=== PATIENT | female | born 1955 | race Caucasian/White ===

== ENCOUNTER → 2016-11-24 | Emergency (ER) | payer OTHER ==
[~2016-11-24] VITALS: Ht 170.2 cm; Wt 73.0 kg
[~2016-11-24] MED LIST: PERCOCET1 TAB PO
--- NOTE | 2016-11-24 02:40 | Emergency Room Report ---
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 N Clinical Suspician of Infection? N Mental Status: 1 - Regular (Normal Baseline) Sepsis Risk:Low Sepsis Risk Have you (or family members/close friends) recently traveled outside the [place]? N If Yes, where/when: Have you had exposure to infectious disease within the past month? N TB? Other? Specify: Source patient, RN notes reviewed, family, old records Exam Limitations no limitations Comment ot with pain from lower back to lt loert leg with surg pending Cardiac Chest Pain Chest pain indicative of cardiac No Timing/Duration this evening Severity moderate ALLERGIES Coded Allergies: Penicillins (Intermediate, 11/24/16) History Medical History General CAD? No Angina: No NC: No Hypertension? No Hyperlipidemia? Yes CHF? No DVT? No PE? No COPD? No Asthma? No Anemia? No GERD? No Gastric ulcers? No GI Bleed? No Hernia? No Thyroid Problems? No Hypothyroidism? No CVA? No Seizures? No Diabetes? Yes Insulin Dependent: Yes Insulin Pump: No Home FSBS? Yes Renal Insuffiency? No End Stage Renal Disease? No UTI? No Stones? No BPH? No GB Disease: No Nephritic Syndrome? No Asplenia? No Hepatitis? No Sickle Cell Disease? No Arthritis? No Migraines? No Cataracts? No Glaucoma? No MRSA? No HIV? No TB? No Anxiety? No Depression? No Cancer? No Immunization Hx DT/Tetanus 5-10 Years Ago Surgical Hx Previous Surgery?Y Hysterectomy-Total HEART CATH Social History Smoking Hx Smoker: Never Smoker Tobacco: No Alcohol Alcohol: No Drugs none Review of Systems All Other Systems Reviewed and Negative Constitutional denies fever Eyes denies drainage ENT denies: ear pain, epistaxis, throat pain. Respiratory denies cough, denies shortness of breath, denies wheezing Cardiovascular denies chest pain, denies syncope Gastrointestinal denies abdominal pain, denies diarrhea, denies vomiting Genitourinary denies: dysuria, frequency, hesitancy, hematuria. Musculoskeletal denies back pain, denies joint pain, denies joint swelling, denies neck pain Skin denies rash Psychiatric/Neurological denies headache, denies seizure Physical Exam Vital Signs Vital Signs Date Time Temp Pulse Resp B/P Pulse O2 O2 Flow FiO2 Ox Delivery Rate 11/24 0213 97.8 74 18 135/72 96 - WBC >12,000 or <4,000 or 10% bands? 2 or more SIRS Criteria Met? B/P:135/72 MAP:93 Creatinine >2.0? UA output<0.5ml/kg/hr for 2 hrs? Platelet count >100,000? Lactate >2.0mmol/1? INR >1.2 or PTT > than 60 sec? Evidence of Organ Dysfunction? Provider documented clinical suspician of infection? N Sepsis Criteria Count: 0 Sepsis Risk: Low Sepsis Risk General Appearance no apparent distress Eye Exam - bilateral eye PERRL, bilateral eye EOMI Ear, Nose, Throat normal ENT inspection Neck supple Respiratory Status No: respiratory distress. 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 No Departure Departure Time of Disposition 0235 Disposition DC Home or Self Care(routine) Clinical Impression Primary Impression: Lumbar disc disease with radiculopathy Condition STABLE Patient Instructions DI for Lumbar Radiculopathy Additional Instructions use meds and see pcp for follow up Discharge Counseling Counseled pt/family regarding diagnosis, medications/RX, follow up needs Prescriptions Current Visit Scripts OXYCODONE HCL/ACETAMINOPHEN (Percocet 5-325 MG Tablet) 1 TAB PO QID #15 TAB ED Critical Care Critical Care No at 0233
[2016-11-24 02:53] VITALS: BP 130/74
--- OUTSIDE RECORDS SUMMARY | 2016-12-01 18:05 | External Medical Summary Rpt ---
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 Name Role Phone JONG, (REF) PCP [phone] Encounter [facility] Date(s): 06/30/16 - 07/20/16 [facility] [address] [place] [address]- [phone] Discharge Disposition: OP Self Care or Home Attending Physician: EDSON SALMON MD-SNU Admitting Physician: EDSON SALMON MD-SNU Referring Physician: EDSON SALMON MD-SNU Reason for Visit OTHER INTERVERTEBRAL DISC DISPLACEMENT, LUMBAR REGION Vital Signs Most recent 1 2 3 to oldest [Reference Range]: Temperature Temporal artery Temporal artery Temporal artery Source scanning (07/20/16 scanning (07/20/16 scanning (07/20/16 1:40 PM) 1:25 PM) 1:00 PM) Temperature Fahrenheit Fahrenheit Fahrenheit Mode (07/20/16 1:25 PM) (07/20/16 1:00 PM) (07/20/16 12:15 PM) Temperature, 97.6 Deg F 97.8 Deg F 97.6 Deg F Fahrenheit (07/20/16 1:25 PM) (07/20/16 1:00 PM) (07/20/16 12:15 [96.8-99.7 PM) Deg F] Clinical 36.4 Deg C 36.2 Deg C Temperature, (07/20/16 12:15 (07/14/16 1:01 PM) C PM) Pulse Method Pulse Oximetry (07/14/16 1:01 PM) Peripheral 87 bpm Pulse Rate (07/14/16 1:01 PM) [60-100 bpm] Heart Rate 80 bpm 88 bpm 79 bpm Monitored (07/20/16 1:55 PM) (07/20/16 1:40 PM) (07/20/16 1:25 PM) [60-100 bpm] Respiratory 16 Breaths/Min 18 Breaths/Min 14 Breaths/Min Rate [14-20 (07/20/16 1:25 PM) (07/20/16 1:15 PM) (07/20/16 1:00 PM) Breaths/Min] Blood Arm, right upper Pressure (07/14/16 1:01 PM) Location Blood Non-Invasive BP Pressure Device (07/14/16 Source 1:01 PM) Blood Sitting Pressure (07/14/16 1:01 PM) Position Blood 118/63 mmHg 122/56 mmHg 118/63 mmHg Pressure (07/20/16 1:55 PM) (07/20/16 1:40 PM) (07/20/16 1:25 PM) [90-140/60-9 0 mmHg] Mean 16 79 81 Arterial (07/20/16 1:55 PM) (07/20/16 1:15 PM) (07/20/16 1:00 PM) Pressure (MAP)-BMDI Oxygen 99 % 99 % 99 % Saturation (07/20/16 1:55 PM) (07/20/16 1:40 PM) (07/20/16 1:25 PM) [94-100 %] Oxygen Room air Room air Room air Therapy Mode (07/20/16 1:55 PM) (07/20/16 1:40 PM) (07/20/16 1:25 PM) Oxygen Flow 6 Liter/Min Rate (07/20/16 12:15 PM) Height Measured Source (07/14/16 1:01 PM) Height Entry [place] Format (07/14/16 1:01 PM) Height/Lengt 67 Inch h UKRAINIAN (07/14/16 1:01 PM) CLINICALHEIG 170.18 cm HT (07/14/16 1:01 PM) Weight Standing scale Source (07/14/16 1:01 PM) Weight Entry [place] Format (07/14/16 1:01 PM) Weight 169 lb Gibraltarian lb (07/14/16 1:01 PM) CLINICALWEIG 76.82 kg HT (07/14/16 1:01 PM) Body Surface 1.88 m2 Area (BSA) (07/14/16 1:01 PM) Body Mass 26.5 kg/m2 Index *HI* [19.0-24.0 (07/14/16 1:01 PM) kg/m2] Alexander Body 61 kg Weight (07/14/16 1:01 PM) Problem List Condition Effective Status Health Informant Dates Status Angina(Confi Active rmed) Back Active pain(Confirm ed) Cataract(Con Active firmed) Coronary Active artery disease(Conf irmed) Diabetes Active mellitus(Con firmed) Disc Active disorder(Con firmed) Endometriosi Active s(Confirmed) Hyperlipidem Active ia(Confirmed ) Allergies, Adverse Reactions, Alerts Substance Reaction Severity Status penicillin Active Medications aspirin 81 mg, Oral, Every Day, Refills: 0 atenolol 12.5 mg, Oral, Every Day, Refills: 0 atorvastatin 20 mg, Oral, Every Day, Refills: 0 citalopram 20 mg, Oral, Every Day, Refills: 0 clopidogrel (Plavix) 75 mg, Oral, Every Day, Refills: 0 oetwfsihejxbnzp31 mg, Oral, Every Day, As Needed, as needed for muscle spasm, Refills: 0 dapagliflozin (Farxiga) 5 mg, Oral, Every Day, Refills: 0 ergocalciferol (Vitamin D2 50,000 intl units (1.25 mg) oral capsule)1 Cap, Oral, Weekly, Refills: 0 fenofibrate 145 mg, Oral, Every Day, Refills: 0 gabapentin 100 mg, Oral, Three Times A Day, Refills: 0 ibuprofen 400 mg, Oral, Four Times A Day, Refills: 0 insulin aspart-insulin aspart protamine (NovoLOG Mix 70/30)50 Units, SubCutaneous , Twice a Day Before Meals, Refills: 0 ranolazine (Ranexa) 500 mg, Oral, Every Day, Refills: 0 Results GENERAL CHEMISTRY Most recent 1 2 to oldest [Reference Range]: Sodium Level 143 mmol/L [136-146 (07/14/16 1:35 PM) mmol/L] Potassium 4.1 mmol/L Level (07/14/16 1:35 PM) [3.5-5.1 mmol/L] Chloride 108 mmol/L Level (07/14/16 1:35 PM) [102-112 mmol/L] Carbon 27 mmol/L Dioxide (07/14/16 1:35 PM) Level [21-32 mmol/L] Anion Gap 12 [9-20] (07/14/16 1:35 PM) Glucose 110 mg/dL Level *HI* [74-106 (07/14/16 1:35 PM) mg/dL] Blood Urea 18 mg/dL Nitrogen (07/14/16 1:35 PM) [7-22 mg/dL] Creatinine 0.70 mg/dL Level (07/14/16 1:35 PM) [0.55-1.02 mg/dL] eGFR 103 mL/min/1.73m2 [>=60 (07/14/16 1:35 PM) mL/min/1.73m 2] eGFR 85 mL/min/1.73m2 NonAfrican (07/14/16 1:35 PM) [>=60 mL/min/1.73m 2] Bun/Creatini 25.7 ne *HI* [8.0-20.0] (07/14/16 1:35 PM) Calcium 8.4 mg/dL Level *LOW* [8.5-10.1 (07/14/16 1:35 PM) mg/dL] Device No action Require No action Require Comment 1 *NA* *NA* (07/20/16 12:44 PM) (07/20/16 8:46 AM) Glucose POC2 172 mg/dL 180 mg/dL [70-110 *HI* *HI* mg/dL] (07/20/16 12:44 PM) (07/20/16 8:46 AM) HEMATOLOGY Most recent 1 2 to oldest [Reference Range]: WBC 7.8 K/uL [4.0-10.0 (07/14/16 1:35 PM) K/uL] RBC 4.15 Million/uL [3.93-5.22 (07/14/16 1:35 PM) Million/uL] Hgb 12.4 g/dL [11.2-15.7 (07/14/16 1:35 PM) g/dL] Hct 38.3 % [34.1-44.9 (07/14/16 1:35 PM) %] MCV 92.3 fL [79.0-94.8 (07/14/16 1:35 PM) fL] MCH 29.9 pg [25.6-32.2 (07/14/16 1:35 PM) pg] MCHC 32.4 Gram/dL [32.2-36.5 (07/14/16 1:35 PM) Gram/dL] Platelet 220 K/uL Count (07/14/16 1:35 PM) [163-369 K/uL] MPV 11.3 fL [9.4-12.4 (07/14/16 1:35 PM) fL] RDW 12.4 % [11.6-14.4 (07/14/16 1:35 PM) %] Slide Review No (07/14/16 1:35 PM) URINALYSIS Most recent 1 2 to oldest [Reference Range]: Urine Type U CleanCatch (07/14/16 1:35 PM) Urine Color Yellow *NA* (07/14/16 1:35 PM) Urine Clear Appearance (07/14/16 1:35 PM) Urine 1.019 Specific (07/14/16 1:35 PM) [place] [1.005-1.030 ] Urine pH 5.5 Dipstick *LOW* [6.0-8.0] (07/14/16 1:35 PM) Urine Negative Leukocyte (07/14/16 1:35 PM) Esterase [Negative] Urine Negative Nitrite (07/14/16 1:35 PM) [Negative] Urine Negative Protein (07/14/16 1:35 PM) Dipstick [Negative] Urine >=1000 Glucose *ABN* Dipstick (07/14/16 1:35 PM) [Negative] Urine Negative Ketones (07/14/16 1:35 PM) Dipstick [Negative] Urine 0.2 EU/dL Urobilinogen (07/14/16 1:35 PM) Dipstick Urine Negative Bilirubin (07/14/16 1:35 PM) Dipstick [Negative] Urine Blood Negative Dipstick (07/14/16 1:35 PM) [Negative] Immunizations No data available for this section Procedures Procedure Date Related Body Site Diagnosis heart cath 07/14 breast augmentation 07/14 hysterectomy 07/14 Social History Social History Response Type Smoking Status Never smoker Assessment and Plan No data available for this section Hospital Discharge Instructions Patient EducationBack Exercises, [facility] Outpatient Surgery Guidelines, Adult
--- OUTSIDE RECORDS SUMMARY | 2016-12-01 18:05 | External Medical Summary Rpt ---
Author Author [facility] Organization [facility] Address Unknown Phone Unavailable Care Team Providers Care Market Manager Name Role Phone JONG, (REF) PCP [phone] Encounter [facility] Date(s): 06/30/16 - 07/20/16 [facility] [address] [place] [address]- Discharge Disposition: OP Self Care or Home [...] Measured Source (07/14/16 1:01 PM) Height Entry [place] Format (07/14/16 1:01 PM) Height/Lengt 67 Inch h BENINESE (07/14/16 1:01 PM) CLINICALHEIG 170.18 cm HT (07/14/16 1:01 PM) Weight Standing scale Source (07/14/16 1:01 PM) Weight Entry [place] Format (07/14/16 1:01 PM) Weight 169 lb Ecuadorean lb (07/14/16 1:01 PM) CLINICALWEIG 76.82 kg HT (07/14/16 1:01 PM) Body Surface 1.88 m2 Area (BSA) (07/14/16 1:01 PM) Body Mass 26.5 kg/m2 Index *HI* [19.0-24.0 (07/14/16 1:01 PM) kg/m2] [place] Body 61 kg Weight (07/14/16 1:01 PM) [...] 75 mg, Oral, Every Day, Refills: 0 [id number] mg, Oral, Every Day, As Needed, as [...] PM) Urine 1.019 Specific (07/14/16 1:35 PM) [place] [1.005-1.030 ] Urine pH 5.5 Dipstick *LOW* [...] section Hospital Discharge Instructions Patient EducationBack Exercises, [facility] Outpatient Surgery Guidelines, Adult
--- OUTSIDE RECORDS SUMMARY | 2016-12-01 18:06 | External Medical Summary Rpt | CCD ---
Author Author , BONIFACIO VALDOVINOS Address Unknown Phone [email or web address] Purpose Continuity of Care Document - 03-07-2012 through 2016 Results Labs Lab Lab Date Result Refere Interp Status Commen Order Detail nces retati t Range on CBC WO diff Bld (09-19-2013 14:06) Red 09-19- 12.7 % 11.5-14 Normal complet Cell 014 .5 ed Distrib 14:06 ution Width Mean 31.3 32-36 Below complet Corpusc 014 g/dL low ed ular 14:06 normal Hemoglo bin Concent Mean 29.8 pg 27-31 Normal complet Corpusc 014 ed ular 14:06 Hemoglo bin Mean 95.1 fL 81-99 Normal complet Corpusc 014 ed ular 14:06 Volume Hematoc 40.9 % 37.0-47 Normal complet rit 014 .0 ed 14:06 Hemoglo 2 12.8 12.0-16 Normal complet bin 014 g/dL .0 ed 14:06 Red 4.30 X 4.20-5. Normal complet Blood 014 10 6 40 ed Count 14:06 White 6.5 X 4.8-10. Normal complet Blood 014 10 3 8 ed Count 14:06 Mean 2 7.8 fL 6.0-10. Normal complet Platele 014 0 ed t 14:06 Volume Platele 279 x10 130-400 Normal complet t Count 014 3 ed 14:06 BASIC METABOLIC PANEL (09-19-2013 14:06) Calcium 09-19-2 9.3 8.4-10. Normal complet Level 014 mg/dL 2 ed 14:06 Calcula 288 275-295 Normal complet loreta 014 mOsm/L ed Osmolal 14:06 ity Glucose 256 70-100 Above complet Level 014 mg/dL high ed 14:06 normal BUN/Cre 22.3 7.0-25. Normal complet atinine 014 0 ed Ratio 14:06 Creatin 57 Normal complet ine w 014 mL/min/ ed Estimat 14:06 1 ed GFR Comment: An eGFR of <60 mL/min/1.73 m2 for three months or more is Comment: indicative of chronic kidney disease. Patients with eGFR Comment: values > or = 60 mL/min/1.73 m2 may have chronic kidney Comment: disease if evidence of persistent proteinuria is present. Comment: Reference: www.kdoqi.org Comment: *Units are mL/min/1.73m2 Creatin 1.0 0.5-0.9 Above complet ine 014 mg/dL high ed 14:06 normal Blood 22.5 6-20 Above complet Urea 014 mg/dL high ed Nitroge 14:06 normal n Anion 6 8-16 Below complet Gap 014 low ed 14:06 normal Carbon 27 22-29 Normal complet Dioxide 014 mmol/L ed Level 14:06 Chlorid 105.1 98-107 Normal complet e Level 014 mmol/L ed 14:06 Potassi 4.5 3.5-5.1 Normal complet um 014 mmol/L ed Level 14:06 Sodium 138 136-145 Normal complet Level 014 mmol/L ed 14:06 CBC WO diff Bld (09-19-2013 14:06) White 6.5 4.8X_ Normal complet Blood 014 X_10_3 10_3 - ed Count 14:06 10.8X _10_3 Red 4.30 4.20X Normal complet Blood 014 X_10_6 _10_6 - ed Count 14:06 5.40X _10_6 Hemoglo 12.8 12.0g Normal complet bin 014 g/dL /dL - ed 14:06 16.0g /dL Hematoc 40.9 % 37.0% Normal complet rit 014 - ed 14:06 47.0% Mean 95.1 fL 81fL Normal complet Corpusc 014 - ed ular 14:06 99fL Volume Mean 29.8 pg 27pg Normal complet Corpusc 014 - ed ular 14:06 31pg Hemoglo bin Mean 2 31.3 32g/d Low complet Corpusc 014 g/dL L - ed ular 14:06 36g/d Hemoglo L bin Concent Red 12.7 % 11.5% Normal complet Cell 014 - ed Distrib 14:06 14.5% ution Width Platele 279 130x1 Normal complet t Count 014 x10_3 0_3 - ed 14:06 400x1 0_3 Mean 7.8 fL 6.0fL Normal complet Platele 014 - ed t 14:06 10.0f Volume L GRAM NEGATIVE-MICROSCAN (09-01-2013 17:46) Comment: Comment: S=Susc I=Intermediate R=Resistant Beka=Resistant Comment: IB=Inducible Beta Lactamase. Susc but may become resistant Comment: ESBL=Extended Spectrum Beta-Lactamase Comment: NOTE: Interpretations based on CLSI guidelines. Comment: Organisms susceptible to Tetracycline are also considered Comment: susceptible to doxycycline and minocycline. Comment: Ampicillin-sulbactam is comparable in results and clinical Comment: efficacy to Amoxicillin-clavulani c acid, Comment: Pipercillin-tazobactr am and Ticarcillin-clavulani c acid. Comment: Erythromycin has an almost identical spectrum of activity Comment: and interpretative results with azithromycin, clarithromycin Comment: and dirithromycin. Comment: ALL FOOTNOTES BASED ON CLSI GUIDELINES. Comment: PIPERAC <=16 : Suscept complet ILLIN/T 014 S (S) ible ed AZOBACT 17:46 AM TRIMETH 07-13-2 <=2/38 Suscept complet OPRIM/S 014 : S (S) ible ed ULFAMET 17:46 HOXAZOL E TOBRAMY <=4 : S Suscept complet DESIREE 014 (S) ible ed 17:46 MEROPEN <=1 : S Suscept complet EM 014 (S) ible ed 17:46 TETRACY <=4 : S Suscept complet NÚÑEZ 014 (S) ible ed 17:46 PIPERAC 32 : I Interme complet ILLIN 014 (I) diate ed 17:46 NITROFU <=32 : Suscept complet RANTOIN 014 S (S) ible ed 17:46 LEVOFLO <=2 : S Suscept complet XACIN 014 (S) ible ed 17:46 GENTAMI <=4 : S Suscept complet DESIREE 014 (S) ible ed 17:46 CIPROFL <=1 : S Suscept complet OXACIN 014 (S) ible ed 17:46 CEPHALO <=8 : S Suscept complet THIN 014 (S) ible ed 17:46 CEFUROX <=4 : S Suscept complet JONATHAN 014 (S) ible ed 17:46 CEFTRIA <=8 : S Suscept complet XONE 014 (S) ible ed 17:46 CEFTAZI <=1 : S Suscept complet DIME 014 (S) ible ed 17:46 CEFOTAX <=2 : S Suscept complet JONATHAN 014 (S) ible ed 17:46 CEFEPIM <=8 : S Suscept complet E 014 (S) ible ed 17:46 AMPICIL >16 : R Resista complet JEAN 014 (R) nt ed 17:46 AMIKACI <=16 : Suscept complet N 014 S (S) ible ed 17:46 URINE CULTURE (09-01-2013 17:46) Comment: Source Name: URINE,CLEAN CATCH\\E\\.br\\E\\ URINE >100,00 Abnorma complet CULTURE 014 0 l ed 17:46 CFU/ML URINE Quantit complet CULTURE 014 y ed 17:46 O:KLEPN KLEBSIE complet E 014 LLA ed 17:46 PNEUMON IAE URINE MICROSCOPIC (09-01-2013 17:46) LEUKOCY SMALL NEGATIV Abnorma complet TE 014 E l ed ESTERAS 17:46 E ,URINE UROBILI 0.2 0.0-1.0 Normal complet NOGEN,U 014 E.H./dL ed RINE 17:46 Urine NEGATIV NEGATIV Normal complet Bilirub 014 E E ed in 17:46 Comment: THE COLOR OF THE URINE CAN CAUSE A POSITIVE BILIRUBIN. NITRATE POSITIV NEGATIV Abnorma complet ,URINE 014 E E l ed 17:46 Urine NEGATIV NEGATIV Normal complet Ketones 014 E mg/dL E ed 17:46 Urine >=1000 NEGATIV Abnorma complet Glucose 014 mg/dL E l ed (UA) 17:46 Urine 30 NEGATIV Abnorma complet Protein 014 mg/dL E l ed 17:46 mg/dL Urine 1.031 1.003-1 Normal complet Specifi 014 .035 ed c 17:46 [place] Urine 5.0 4.5-8.0 Normal complet pH 014 ed 17:46 BLOOD, LARGE NEGATIV Abnorma complet URINE 014 E l ed 17:46 SOURCE, CLEAN Normal complet URINE 014 CATCH ed 17:46 Urine CLOUDY Normal complet Appeara 014 ed nce 17:46 URINE MICROSCOPIC (09-01-2013 17:46) Urine YELLOW Normal complet Color 014 ed 17:46 CLINITEST,URINE (09-01-2013 17:46) CLINITE [address] Normal complet [address],URIN 014 mg/dL E ed E 17:46 TROPONIN I (03-08-2012 05:15) TROPONI <*0.30 0.00-0. Normal complet N I 013 ng/mL 30 ed 05:15 Comment: TNI Interpretive Text: <=0.3ng/mL is considered negative for Comment: Acute Myocardial Infarction (AMI). TROPONIN I (03-07-2012 21:00) TROPONI <*0.30 0.00-0. Normal complet N I 013 ng/mL 30 ed 21:00 Comment: TNI Interpretive Text: <=0.3ng/mL is considered negative for Comment: Acute Myocardial Infarction (AMI). PARTIAL THROMBOPLASTIN TIME (03-07-2012 16:30) PARTIAL 70.2 25.9-29 Above complet 013 SECONDS .8 high ed THROMBO 16:30 normal PLASTIN TIME ISTAT ACT (03-07-2012 14:06) ISTAT 176 SEC 74-137 Above complet ACT 013 high ed 14:06 normal CMP (03-07-2012 08:20) ALKALIN 85 IU/L 35-105 Normal complet E 013 ed PHOSPHA 08:20 TASE ALBUMIN 1.4 1.1-1.8 Normal complet /GLOBUL 013 ed IN 08:20 RATIO GLOBULI 3.0 1.5-3.8 Normal complet N 013 gm/dL ed 08:20 ALBUMIN 4.3 3.5-5.2 Normal complet 013 g/dL ed 08:20 PROTEIN 7.3 6.4-8.3 Normal complet , TOTAL 013 g/dL ed 08:20 ALANINE 17 IU/L 0-33 Normal complet 013 ed AMINOTR 08:20 ANSFERA SE ASPARTA 16 IU/L 0-32 Normal complet TE 013 ed AMINO 08:20 TRANSFE RASE BILIRUB 0.2 0.0-1.2 Normal complet IN,TOTA 013 mg/dL ed L 08:20 CALCIUM 9.4 8.4-10. Normal complet 013 mg/dL 2 ed 08:20 OSMOLAL 284 275-295 Normal complet ITY,OTONIEL 013 mOsm/L ed CULATED 08:20 GLUCOSE 253 70-100 Above complet 013 mg/dL high ed 08:20 normal BUN/CRE 31.3 7.0-25. Above complet ATININE 013 0 high ed RATIO 08:20 normal eGFR >*59 Normal complet 013 mL/min/ ed 08:20 1 Comment: An eGFR of <60 mL/min/1.73 m2 for three months or more is Comment: indicative of chronic kidney disease. Patients with eGFR Comment: values > or = 60 mL/min/1.73 m2 may have chronic kidney Comment: disease if evidence of persistent proteinuria is present. Comment: Reference: www.kdoqi.org Comment: *Units are mL/min/1.73m2 CREATIN 0.7 0.5-0.9 Normal complet INE 013 mg/dL ed 08:20 BLOOD 21.9 6-20 Above complet UREA 013 mg/dL high ed NITROGE 08:20 normal N ANION 14 8-16 Normal complet GAP 013 ed 08:20 CARBON 22 22-29 Normal complet DIOXIDE 013 mmol/L ed 08:20 CHLORID 100.4 98-107 Normal complet E 013 mmol/L ed 08:20 POTASSI 3.6 3.5-5.1 Normal complet UM 013 mmol/L ed 08:20 SODIUM 136 136-145 Normal complet 013 mmol/L ed 08:20 TROPONIN I (03-07-2012 08:20) TROPONI <*0.30 0.00-0. Normal complet N I 013 ng/mL 30 ed 08:20 Comment: TNI Interpretive Text: <=0.3ng/mL is considered negative for Comment: Acute Myocardial Infarction (AMI). CBC WITH AUTO DIFF REFLEX (03-07-2012 08:20) MONOCYT 0.3 X 0.3-0.9 Normal complet ES # 013 10 3 ed (AUTO) 08:20 LYMPHOC 3.3 X 1.0-3.3 Normal complet YTES # 013 10 3 ed (AUTO) 08:20 NEUTROP 3.8 X 1.8-7.0 Normal complet HILS # 013 10 3 ed (AUTO) 08:20 BASOPHI 1.0 % 0-1.6 Normal complet LS % 013 ed (AUTO) 08:20 EOSINOP 01-16-2 3.4 % 0.0-5.8 Normal complet HILS % 013 ed (AUTO) 08:20 MONOCYT -16-2 4.2 % 4.4-11. Below complet ES % 013 0 low ed (AUTO) 08:20 normal LYMPHOC -16-2 41.9 % 17.6-40 Above complet YTES % 013 .8 high ed (AUTO) 08:20 normal NEUTROP -16-2 48.0 % 43.1-74 Normal complet HILS % 013 .8 ed (AUTO) 08:20 Comment: If a manual differential is indicated, submit order within Comment: 48 hours" MEAN 16-2 9.4 fL 6.0-10. Normal complet PLATELE 013 0 ed T 08:20 VOLUME PLATELE 16-2 238 x10 130-400 Normal complet T COUNT 013 3 ed 08:20 RDW 16-2 13.6 % 11.5-14 Normal complet 013 .5 ed 08:20 MCHC 16-2 32.0 32-36 Normal complet 013 g/dL ed 08:20 MCH -16-2 30.1 pg 27-31 Normal complet 013 ed 08:20 MCV 16-2 94.0 fL 81-99 Normal complet 013 ed 08:20 HEMATOC -16-2 43.3 % 37.0-47 Normal complet RIT 013 .0 ed 08:20 HEMOGLO 16-2 13.8 12.0-16 Normal complet BIN 013 g/dL .0 ed 08:20 RED 16-2 4.60 X 4.20-5. Normal complet BLOOD 013 10 6 40 ed COUNT 08:20 WBC -16-2 8.0 X 4.8-10. Normal complet (WHITE 013 10 3 8 ed BLOOD 08:20 CELL) BASOPHI -16-2 0.1 X 0.0-0.2 Normal complet LS # 013 10 3 ed (AUTO) 08:20 EOSINOP -16-2 0.3 X 0.0-0.5 Normal complet HILS # 013 10 3 ed (AUTO) 08:20
--- OUTSIDE RECORDS SUMMARY | 2016-12-01 18:06 | External Medical Summary Rpt | CCD ---
Author Author , BONIFACIO VALDOVINOS Address Unknown Phone [email or web address] Purpose Continuity of Care Document - 03-07-2012 [...] complet Specifi 014 .035 ed c 17:46 [place] Urine 5.0 4.5-8.0 Normal complet pH 014 [...]
--- OUTSIDE RECORDS SUMMARY | 2016-12-01 18:07 | External Medical Summary Rpt | CCD ---
Author Author [employer] Organization [employer] Address Unknown Phone Unavailable Purpose Continuity of Care Document - through 2016
--- OUTSIDE RECORDS SUMMARY | 2016-12-01 18:07 | External Medical Summary Rpt | CCD ---
Author Author , BONIFACIO VALDOVINOS Address Unknown Phone [email or web address] Immunization Name Date Rout CVX Reac Dose Comm Prov Is Faci e tion ent ider Refu lity Give sed n Hep 08-1 43 999 Hist H191 No H191 B, 1-20 oric adul 08 al t Info rmat ion - Sour ce Unsp ecif ied Hep 08-2 43 999 Hist H191 No H191 B, 0-20 oric adul 07 al t Info rmat ion - Sour ce Unsp ecif ied Hep 05-0 43 999 Hist H135 No H135 B, 9-20 oric adul 05 al t Info rmat ion - Sour ce Unsp ecif ied
--- OUTSIDE RECORDS SUMMARY | 2016-12-01 18:07 | External Medical Summary Rpt | CCD ---
Author Author , BONIFACIO VALDOVINOS Address Unknown Phone [email or web address] Immunization Name Date Rout CVX Reac Dose [...]
== END ==
LOC: ER 02:05
DX: M51.16 Intervertebral disc disorders with radiculopathy, lumbar region (principal); Z88.0 Allergy status to penicillin; E78.5 Hyperlipidemia, unspecified; E11.9 Type 2 diabetes mellitus without complications; Z79.4 Long term (current) use of insulin